=== PATIENT | female | born 1985 | race Hispanic/Latino ===

== ENCOUNTER 2018-10-15 12:32 | Emergency (ER) | payer SELFPAY ==
[2018-10-15] MEDS ORDERED: Ibuprofen 800 MG TAB ONE (14:39)
[2018-10-15] MEDS ORDERED: Acetaminophen 500 MG TAB ONE (14:39)
== END 2018-10-15 14:41 | disposition home or self-care (01) ==
LOC: ERS 12:32
DX: J11.1 Influenza due to unidentified influenza virus with other respiratory manifestations (principal)
CPT/HCPCS: 87804; 99283

== ENCOUNTER 2021-05-11 04:19 | Emergency (ER) | payer SELFPAY ==
[2021-05-11] MEDS ORDERED: Lidocaine Viscous Sol 2% 15 ml UD Cup ONE (06:25)
== END 2021-05-11 07:30 | disposition home or self-care (01) ==
LOC: ERS 04:19
DX: R09.89 Other specified symptoms and signs involving the circulatory and respiratory systems (principal)
CPT/HCPCS: 70360; 93005

== ENCOUNTER 2023-03-20 00:27 | Emergency (ER) | payer SELFPAY ==
[2023-03-20] MEDS ORDERED: Lidocaine 1% PF 5 ML VIAL ONE (02:27)
[2023-03-20] MEDS ORDERED: Lidocaine Viscous Sol 2% 15 ml UD Cup SSW SCH (02:45)
[2023-03-20] MEDS ORDERED: Ketorolac Tromethamine 30 MG/ML VIAL ONE (03:31)
== END 2023-03-20 04:02 | disposition home or self-care (01) ==
LOC: ERS 00:27
DX: T18.0XXA Foreign body in mouth, initial encounter (principal)
CPT/HCPCS: 31577; 70360; 96372; J1885

== ENCOUNTER 2023-03-20 17:58 | Emergency (ER) | payer SELFPAY | END 2023-03-20 22:24 | disposition home or self-care (01) | LOC: ERS 17:58 | DX: J02.9 Acute pharyngitis, unspecified (principal) | CPT/HCPCS: 70360 ==